=== PATIENT | male | born 1965 | race Caucasian/White ===

== ENCOUNTER 2017-06-21 11:08 | Emergency (ER) | payer OTHER ==
--- NOTE | 2017-06-21 11:29 | EDM.PDOC ---
ED HPI GENERAL MEDICAL PROBLEM - General Chief Complaint: Abdominal Pain Stated Complaint: ABD PAIN Time Seen by Provider: 06/21/17 11:29 Source of Information: Reports: Patient, Family (), RN, RN Notes Reviewed History Limitations: Reports: No Limitations - History of Present Illness INITIAL COMMENTS - FREE TEXT/NARRATIVE: Arrives from home by POV with c/o onset of abdominal pain with nausea and vomiting this morning. Pt last ate chicken for dinner at a restaurant last night. The pain is waxing and waning, and rated 9-10/10 at maximal intensity. He described a generalized abdominal ache with recurring bouts of severe pain at the B/L "kidney area" right side worse than left. Denies fevers. Admit to chills and diaphoresis with vomiting and pain. Denies diarrhea. Had a "normal" BM this morning. No known sick contacts. Onset: Today Duration: Constant, Waxing/Waning Location: Reports: Abdomen Quality: Reports: Ache Severity: Severe Improves with: Reports: None Worsens with: Reports: None Associated Symptoms: Reports: No Other Symptoms Middle Abdomen Pain Score (Numeric/FACES): 7 - Related Data Allergies Allergy/AdvReac Type Severity Reaction Status Date / Time No Known Allergies Allergy Verified 06/21/17 11:26 Home Meds: Home Meds Chlorthalidone 25 mg PO DAILY 06/21/17 [History] Cholecalciferol (Vitamin D3) [Vitamin D3] 1,000 unit PO DAILY 06/21/17 [History] Folic Acid 1 mg PO DAILY 06/21/17 [History] Hydroxychloroquine Sulfate 200 mg PO 06/21/17 [History] Ibuprofen [Motrin] 800 mg PO PRN 06/21/17 [History] Insulin Detemir [Levemir] 06/21/17 [History] Lisinopril 40 mg PO DAILY 06/21/17 [History] Magnesium Oxide 420 mg PO 06/21/17 [History] Methotrexate 2.5 mg PO 06/21/17 [History] Omeprazole 20 mg PO DAILY 06/21/17 [History] Prednisone [IJP: Prednisone] 10 mg PO 06/21/17 [History] Rosuvastatin Calcium 40 mg PO 06/21/17 [History] Sildenafil Citrate [Sildenafil] 100 mg PO 06/21/17 [History] Tiotropium [Spiriva HandiHaler] 18 mcg INH DAILY 06/21/17 [History] glipiZIDE [Glucotrol XL] 10 mg PO BID 06/21/17 [History] metFORMIN HCl [Metformin HCl] 1,000 mg PO 06/21/17 [History] Past Medical History Cardiovascular History: Reports: Hypertension Gastrointestinal History: Reports: GERD Endocrine/Metabolic History: Reports: Diabetes, Type II, IDDM - Past Surgical History GI Surgical History: Reports: Appendectomy Social & Family History - Family History Family Medical History: Noncontributory - Living Situation & Occupation Living situation: Reports: , with Spouse Occupation: Employed ED ROS GENERAL - Review of Systems Review Of Systems: ROS reveals no pertinent complaints other than HPI. ED EXAM, GI/ABD - Physical Exam Exam: See Below Exam Limited By: No Limitations General Appearance: Alert, WD/WN, Mild Distress (due to abdominal pain) Eyes: Bilateral: Normal Appearance Ears: Hearing Grossly Normal Nose: Normal Inspection Throat/Mouth: Normal Lips, Normal Teeth, Normal Oropharynx, Normal Voice, No Airway Compromise, Other (dry oral membranes) Head: Atraumatic, Normocephalic Neck: Normal Inspection, Supple, Non-Tender, Full Range of Motion Respiratory/Chest: No Respiratory Distress, Lungs Clear, Normal Breath Sounds, No Accessory Muscle Use, Chest Non-Tender Cardiovascular: Regular Rate, Rhythm, No Edema, Tachycardia GI/Abdominal Exam: Normal Bowel Sounds, Soft, No Distention, No Abnormal Bruit, Tender (mild generalized tenderness). No: Guarding, Rigid, Rebound (Male) Exam: Deferred Rectal (Males) Exam: Deferred Back Exam: Normal Inspection Extremities: Normal Inspection Neurological: Alert, Oriented, CN II-XII Intact, Normal Cognition, Normal Gait, No Motor/Sensory Deficits Psychiatric: Normal Affect, Normal Mood Skin Exam: Warm, Intact, No Rash, Diaphoretic, Pallor Course - Vital Signs Last Recorded V/S: Last Vital Signs Temp 36.2 C 06/21/17 11:26 Pulse 120 H 06/21/17 11:26 Resp 20 06/21/17 11:26 BP 139/91 H 06/21/17 11:26 Pulse Ox 98 06/21/17 11:26 - Orders/Labs/Meds Orders: Active Orders 24 hr Category Date Time Status Peripheral IV Care [RC] . DIRECTED Care 06/21/17 11:36 Active CULTURE BLOOD [BC] Stat Lab 06/21/17 12:25 Received CULTURE BLOOD [BC] Stat Lab 06/21/17 12:31 Received Sodium Chloride 0.9% [Saline Flush] Med 06/21/17 11:35 Active 10 ml FLUSH ASDIRECTED PRN Blood Culture x2 Reflex Set [OM.PC] Stat Oth 06/21/17 12:10 Ordered Peripheral IV Insertion Adult [OM.PC] Stat Oth 06/21/17 11:35 Ordered Medication Orders Sodium Chloride (Saline Flush) 10 ml FLUSH ASDIRECTED PRN PRN Reason: Keep Vein Open Last Admin: 06/21/17 11:47 Dose: 10 ml Labs: Laboratory Tests 06/21/17 06/21/17 06/21/17 Range/Units 11:33 11:33 12:07 WBC 22.5 H (5.0-10.0) 10^3/uL RBC 5.31 (4.6-6.2) 10^6/uL Hgb 16.0 (14.0-18.0) g/dL Hct 46.0 (40.0-54.0) % MCV 86.6 (80-100) fL MCH 30.1 (27.0-34.0) pg MCHC 34.8 (33.0-35.0) g/dL Plt Count 297 (150-450) 10^3/uL Neut % (Auto) 74.9 (42.2-75.2) % Lymph % (Auto) 10.3 L (20.5-50.1) % [place] % (Auto) 13.2 H (2-8) % Eos % (Auto) 1.4 (1.0-3.0) % Baso % (Auto) 0.2 (0.0-1.0) % Sodium 139 (135-145) mmol/L Potassium 3.9 (3.6-5.0) mmol/L Chloride 102 (101-111) mmol/L Carbon Dioxide 26.0 (21.0-31.0) mmol/L Anion Gap 14.9 BUN 20 H (7-18) mg/dL Creatinine 1.0 (0.6-1.3) mg/dL Est Cr Clr Drug Dosing 99.88 mL/min Estimated GFR (MDRD) > 60 BUN/Creatinine Ratio 20.00 Glucose 161 H (74-105) mg/dL Lactic Acid (0.5-2.2) mmol/L Calcium 10.1 (8.4-10.2) mg/dl Total Bilirubin 0.6 (0.2-1.0) mg/dL AST 36 (10-42) IU/L ALT 51 (10-60) IU/L Alkaline Phosphatase 49 (42-121) IU/L Total Protein 7.8 (6.7-8.2) g/dl Albumin 4.4 (3.2-5.5) g/dl Globulin 3.4 Albumin/Globulin Ratio 1.29 Amylase 30 (28-100) U/L Lipase 22 (22-51) U/L Urine Color [place] (YELLOW) Urine Appearance Slightly cloudy (CLEAR) Urine pH 7.5 (5.0-9.0) Ur Specific [place] 1.020 (1.005-1.030) Urine Protein 30 H (NEGATIVE) Urine Glucose (UA) Negative (NEGATIVE) Urine Ketones Trace H (NEGATIVE) Urine Occult Blood Negative (NEGATIVE) Urine Nitrite Negative (NEGATIVE) Urine Bilirubin Small H (NEGATIVE) Urine Urobilinogen 2.0 H (0.2-1.0) mg/dL Ur Leukocyte Esterase Negative (NEGATIVE) Urine RBC Not seen /HPF Urine WBC Not seen (0-5/HPF) /HPF Ur Epithelial Cells Rare /HPF Urine Bacteria Not seen (0-FEW/HPF) /HPF Urine Mucus Moderate H /LPF 06/21/17 Range/Units 12:25 WBC (5.0-10.0) 10^3/uL RBC (4.6-6.2) 10^6/uL Hgb (14.0-18.0) g/dL Hct (40.0-54.0) % MCV (80-100) fL MCH (27.0-34.0) pg MCHC (33.0-35.0) g/dL Plt Count (150-450) 10^3/uL Neut % (Auto) (42.2-75.2) % Lymph % (Auto) (20.5-50.1) % [place] % (Auto) (2-8) % Eos % (Auto) (1.0-3.0) % Baso % (Auto) (0.0-1.0) % Sodium (135-145) mmol/L Potassium (3.6-5.0) mmol/L Chloride (101-111) mmol/L Carbon Dioxide (21.0-31.0) mmol/L Anion Gap BUN (7-18) mg/dL Creatinine (0.6-1.3) mg/dL Est Cr Clr Drug Dosing mL/min Estimated GFR (MDRD) BUN/Creatinine Ratio Glucose (74-105) mg/dL Lactic Acid 1.3 (0.5-2.2) mmol/L Calcium (8.4-10.2) mg/dl Total Bilirubin (0.2-1.0) mg/dL AST (10-42) IU/L ALT (10-60) IU/L Alkaline Phosphatase (42-121) IU/L Total Protein (6.7-8.2) g/dl Albumin (3.2-5.5) g/dl Globulin Albumin/Globulin Ratio Amylase (28-100) U/L Lipase (22-51) U/L Urine Color (YELLOW) Urine Appearance (CLEAR) Urine pH (5.0-9.0) Ur Specific [place] (1.005-1.030) Urine Protein (NEGATIVE) Urine Glucose (UA) (NEGATIVE) Urine Ketones (NEGATIVE) Urine Occult Blood (NEGATIVE) Urine Nitrite (NEGATIVE) Urine Bilirubin (NEGATIVE) Urine Urobilinogen (0.2-1.0) mg/dL Ur Leukocyte Esterase (NEGATIVE) Urine RBC /HPF Urine WBC (0-5/HPF) /HPF Ur Epithelial Cells /HPF Urine Bacteria (0-FEW/HPF) /HPF Urine Mucus /LPF Meds: Medications Generic Name Dose Route Start Last Admin Trade Name Freq PRN Reason Stop Dose Admin Sodium Chloride 10 ml 06/21/17 11:35 06/21/17 11:47 Saline Flush FLUSH 10 ml ASDIRECTED PRN Administration Keep Vein Open Discontinued Medications Generic Name Dose Route Start Last Admin Trade Name Freq PRN Reason Stop Dose Admin Hydromorphone HCl 1 mg 06/21/17 11:36 06/21/17 11:46 Dilaudid IVPUSH 06/21/17 11:37 1 mg ONETIME ONE Administration Hydromorphone HCl 1 mg 06/21/17 12:09 06/21/17 12:22 Dilaudid IVPUSH 06/21/17 12:10 1 mg ONETIME ONE Administration Sodium Chloride 1,000 mls @ 999 mls/hr 06/21/17 11:36 06/21/17 11:47 Normal Saline IV 06/21/17 12:36 999 mls/hr .BOLUS ONE Administration Iopamidol 100 ml 06/21/17 12:41 06/21/17 13:03 Isovue-300 (61%) IVPUSH 06/21/17 12:42 100 ml ONETIME ONE Administration Ondansetron HCl 4 mg 06/21/17 11:36 06/21/17 11:47 Zofran IV 06/21/17 11:37 4 mg ONETIME ONE Administration - Radiology Interpretation Free Text/Narrative:: CT Abd/Pelvis: no acute findings per Rad. report. Departure - Departure Time of Disposition: 13:52 Disposition: Home, Self-Care 01 Condition: Fair Clinical Impression: Abdominal pain Qualifiers: Abdominal location: generalized Qualified Code(s): R10.84 - Generalized abdominal pain Nausea & vomiting Qualifiers: Vomiting type: unspecified Vomiting Intractability: non-intractable Qualified Code(s): R11.2 - Nausea with vomiting, unspecified - Discharge Information Instructions: Nausea and Vomiting, Adult, [id number], Abdominal Pain, Adult, [id number] Forms: ED Department Discharge Additional Instructions: Rx: Zofran 4mg ODT Rx: Phenergan 25mg rectal suppositories Clear liquid diet until nausea and vomiting resolve, then advance to soft bland diet as tolerated. Follow up in clinic if not improved in 3 days. Return to ER if worse at any time. - My Orders Last 24 Hours: My Active Orders 06/21/17 11:35 Sodium Chloride 0.9% [Saline Flush] 10 ml FLUSH ASDIRECTED PRN Peripheral IV Insertion Adult [OM.PC] Stat 06/21/17 11:36 Peripheral IV Care [RC] . DIRECTED 06/21/17 12:10 Blood Culture x2 Reflex Set [OM.PC] Stat 06/21/17 12:25 CULTURE BLOOD [BC] Stat 06/21/17 12:31 CULTURE BLOOD [BC] Stat - Assessment/Plan Last 24 Hours: My Active Orders 06/21/17 11:35 Sodium Chloride 0.9% [Saline Flush] 10 ml FLUSH ASDIRECTED PRN Peripheral IV Insertion Adult [OM.PC] Stat 06/21/17 11:36 Peripheral IV Care [RC] . DIRECTED 06/21/17 12:10 Blood Culture x2 Reflex Set [OM.PC] Stat 06/21/17 12:25 CULTURE BLOOD [BC] Stat 06/21/17 12:31 CULTURE BLOOD [BC] Stat
[2017-06-21] MEDS ORDERED: Sodium Chloride 0.9% 10 ML Syringe FLUSH PRN (11:35)
[2017-06-21] MEDS ORDERED: HYDROmorphone 1 MG/ML Syringe IVPUSH ONE ×3 (11:36→13:58)
[2017-06-21] MEDS ORDERED: Ondansetron 4 MG/2 ML SDV IV ONE (11:36)
[2017-06-21] MEDS ORDERED: Sodium Chloride 0.9% 1,000 ML IV ONE (11:36)
[2017-06-21 12:00] LABS: CHLORIDE,CL 102 mmol/L (101-111); SODIUM,NA 139 mmol/L (135-145)
[2017-06-21] MEDS ORDERED: Iopamidol 612 MG/ML 100 ML Bottle IVPUSH ONE (12:41)
[2017-06-21] MEDS ORDERED: Promethazine 25 MG/ML SDV IM ONE (13:58)
[2017-06-21] MEDS ORDERED: Ketorolac 30 MG/ML SDV IVPUSH ONE (13:58)
== END 2017-06-21 14:14 | disposition home or self-care (01) ==
LOC: DL.ED 11:08
DX: R10.84 Generalized abdominal pain (principal); R11.2 Nausea with vomiting, unspecified; I10 Essential (primary) hypertension; E11.9 Type 2 diabetes mellitus without complications; K21.9 Gastro-esophageal reflux disease without esophagitis; Z79.4 Long term (current) use of insulin; Z79.899 Other long term (current) drug therapy; Z90.49 Acquired absence of other specified parts of digestive tract
CPT/HCPCS: 36415; 74177; 80053; 81001; 82150; 83605; 83690; 85025; 87040; 96361; 96372; 96374; 96375; 96376; 99284; J1170; J1885; J2405; J2550; J7030; J7050; Q9967

== ENCOUNTER 2018-06-04 11:04 | Emergency (ER) | payer OTHER ==
[2018-06-04] MEDS ORDERED: Ketorolac 30 MG/ML SDV IM ONE (15:21)
--- NOTE | 2018-06-04 15:27 | EDM.PDOC ---
ED HPI GENERAL MEDICAL PROBLEM - General Chief Complaint: Neck Problem Stated Complaint: NECK PAIN [id number] Time Seen by Provider: 06/04/18 15:15 Source of Information: Reports: Patient History Limitations: Reports: No Limitations - History of Present Illness INITIAL COMMENTS - FREE TEXT/NARRATIVE: this patient comes emergency department today with complaints of neck pain. This patient has had chronic neck pain following a work related injury many years ago. 2 months ago he had his head again on something at work and his neck is been bothering him quite extensively. He has severe pain in his right lower neck and goes up to his head and gives him a headache. It is getting to the point where he can't sleep or do anything anymore due to the pain. He [facility]. Reports that he is not been giving anything for pain and he can't take it anymore. He was on long-term narcotics many years ago but has not been on for over a year. NO recent other injuries no change in the function of his upper or lower extremities. Right Neck Pain Score (Numeric/FACES): 6 - Related Data Allergies Allergy/AdvReac Type Severity Reaction Status Date / Time No Known Allergies Allergy Verified 06/04/18 12:22 Home Meds: Home Meds Chlorthalidone 25 mg PO DAILY 06/21/17 [History] Cholecalciferol (Vitamin D3) [Vitamin D3] 1,000 unit PO DAILY 06/21/17 [History] Folic Acid 1 mg PO DAILY 06/21/17 [History] Hydroxychloroquine Sulfate 200 mg PO 06/21/17 [History] Ibuprofen [Motrin] 800 mg PO PRN 06/21/17 [History] Insulin Detemir [Levemir] 06/21/17 [History] Lisinopril 40 mg PO DAILY 06/21/17 [History] Magnesium Oxide 420 mg PO 06/21/17 [History] Methotrexate 2.5 mg PO 06/21/17 [History] Omeprazole 20 mg PO DAILY 06/21/17 [History] Prednisone [IJP: Prednisone] 10 mg PO 06/21/17 [History] Rosuvastatin Calcium 40 mg PO 06/21/17 [History] Sildenafil Citrate [Sildenafil] 100 mg PO 06/21/17 [History] Tiotropium [Spiriva HandiHaler] 18 mcg INH DAILY 06/21/17 [History] glipiZIDE [Glucotrol XL] 10 mg PO BID 06/21/17 [History] metFORMIN HCl [Metformin HCl] 1,000 mg PO 06/21/17 [History] Cyclobenzaprine [Flexeril] 10 mg PO TID #12 tab 06/04/18 [Rx] Past Medical History Cardiovascular History: Reports: Hypertension Gastrointestinal History: Reports: GERD Endocrine/Metabolic History: Reports: Diabetes, Type II, IDDM - Past Surgical History GI Surgical History: Reports: Appendectomy Social & Family History - Family History Family Medical History: Noncontributory - Tobacco Use Smoking Status *Q: Current Every Day Smoker Years of Tobacco use: 30 Packs/Tins Daily: 1 - Caffeine Use Caffeine Use: Reports: Soda - Recreational Drug Use Recreational Drug Use: No - Living Situation & Occupation Living situation: Reports: , with Spouse Occupation: Employed ED ROS GENERAL - Review of Systems Review Of Systems: ROS reveals no pertinent complaints other than HPI. ED EXAM, UPPER BACK/NECK PAIN - Physical Exam Exam: See Below Exam Limited By: No Limitations General Appearance: Alert Eye Exam: Bilateral Eye: Normal Inspection Ears Exam: Normal External Exam, Hearing Grossly Normal Nose Exam: Normal Inspection Throat/Mouth Exam: Normal Inspection, Normal Lips, Normal Voice Head Exam: Atraumatic, Normocephalic Neck Exam: Limited Range of Motion, Painful Range of Motion, Stiff Neck, Tender Lateral. No: Tender Midline Nexus Criteria: No: Posterior, Midline Cervical Tenderness, Evidence of Intoxication, Altered Level of Consciousness, Focal Neurological Deficit, Painful Distraction Injuries Cardiovascular/Respiratory: Regular Rate, Rhythm, No M/R/G GI/Abdominal: Normal Bowel Sounds, Soft Back Exam: Normal Inspection, Full Range of Motion. 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 As Tested, No Motor/Sensory Deficits, Alert, Normal Mood/Affect, Oriented x 3 DTR: 2+: Bicep (R), Bicep (L), Tricep (R), Tricep (L) Psychiatric: Depressed Mood, Flat Affect Skin Exam: Normal Color, Warm/Dry Lymphatic: No Adenopathy Course - Vital Signs Last Recorded V/S: Last Vital Signs Temp 36.1 C 06/04/18 14:38 Pulse 119 H 06/04/18 14:38 Resp 14 06/04/18 12:18 BP 136/77 06/04/18 14:38 Pulse Ox 100 06/04/18 12:18 - Orders/Labs/Meds Meds: Medications Discontinued Medications Generic Name Dose Route Start Last Admin Trade Name Hermila PRN Reason Stop Dose Admin Hydrocodone Bitart/Acetaminophen 1 tab 06/04/18 16:08 06/04/18 16:29 [place] 325-10 Mg PO 06/04/18 16:09 1 tab ONETIME ONE Administration Ketorolac Tromethamine 30 mg 06/04/18 15:21 06/04/18 15:29 Toradol IM 06/04/18 15:22 30 mg ONETIME ONE Administration Orphenadrine Citrate 60 mg 06/04/18 15:21 06/04/18 15:32 Norflex IM 06/04/18 15:22 60 mg NOW STA Administration - Re-Assessments/Exams Free Text/Narrative Re-Assessment/Exam: 06/06/18 09:03 Ketorolac 30mg IM Norflex 60mg IM I did review the patient PDMP for the state of [place] and [place]. I do not see any evidence of any controlled substances given to this patient for over a year. I did explain to the patient that this is a chronic condition that needs to be managed in the primary care setting. There is nothing new today and this has been going on for 2 months.[facility] he needs to be continued to follow closely for his long-term management. He has had injections in his neck in the past which resolved his pain completely. He has not had any of those. He does have an MR scheduled for next week. As he does appear quite uncomfortable and he has not received any narcotics in the pastyearI will give him a very short course of 8 tablets of hydrocodone so that he can get through the next day or so and meet with his primary care provider for long-term management plan of this.As well as Flexeril which he denies a prescription for as he has not been using them. He is comfortable with this plan and his questions are answered. Departure - Departure Time of Disposition: 16:01 Disposition: Home, Self-Care 01 Clinical Impression: Chronic neck pain - Discharge Information Prescriptions: Cyclobenzaprine [Flexeril] 10 mg PO TID #12 tab Instructions: Cervical Sprain, [id number], Pain Medicine Instructions, Easy- to-Read Referrals: Antonia Skinner NP [Primary Care Provider] - Forms: ED Department Discharge Additional Instructions: Flexeril 1 tablet three times a day as needed for pain. As you are driving. [place] 1 tab to go home take when you get home and rx for 1 tablet every 4-6 hrs as needed for pain caution sedation. 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 [facility] here [facility] [place]. 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 Return to the ED if new or worsening symptoms. - Assessment/Plan Assessment:: chronic neck pain. Plan: Flexeril 1 tablet three times a day as needed for pain. As you are driving. [place] 1 tab to go home take when you get home and rx for 1 tablet every 4-6 hrs as needed for pain caution sedation. RX given to the patient. [facility] chronic management of your pain needs to be managed by a PCP. [facility] a [facility] here in [place]. Continue to work with [facility] for the group home management of your chronic neck pain. Return to the ED if new or worsening symptoms.
[2018-06-04] MEDS ORDERED: Acetaminophen/HYDROcodone 325-10 MG Tab PO ONE (16:08)
== END 2018-06-04 16:39 | disposition home or self-care (01) ==
LOC: DL.ED 11:04
DX: G89.29 Other chronic pain (principal); M54.2 Cervicalgia; I10 Essential (primary) hypertension; E11.9 Type 2 diabetes mellitus without complications; F17.210 Nicotine dependence, cigarettes, uncomplicated; Z79.4 Long term (current) use of insulin; Z79.899 Other long term (current) drug therapy
CPT/HCPCS: 96372; 99282; A9270; J1885; J2360

== ENCOUNTER 2019-04-10 22:57 | Emergency (ER) | payer SELFPAY ==
[2019-04-10] MEDS ORDERED: Nitroglycerin 0.4 MG Tab.SL SL ONE (23:05)
--- NOTE | 2019-04-10 23:06 | EDM.PDOC ---
ED HPI GENERAL MEDICAL PROBLEM - General Chief Complaint: Chest Pain Stated Complaint: AMBULANCE Time Seen by Provider: 04/10/19 23:03 Source of Information: Reports: Patient, Family History Limitations: Reports: No Limitations - History of Present Illness INITIAL COMMENTS - FREE TEXT/NARRATIVE: spouse states pt is s/p 3x stent Saturday. onset mid sternal pain going up to jaw and down left arm about 1 hour ago. 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 Treatments FRAUD ANALYST: Reports: NSAIDS Left Chest Pain Score (Numeric/FACES): 5 - Related Data Allergies Allergy/AdvReac Type Severity Reaction Status Date / Time No Known Allergies Allergy Verified 04/10/19 22:58 Home Meds: Home Meds Chlorthalidone 25 mg PO DAILY 06/21/17 [History] Cholecalciferol (Vitamin D3) [Vitamin D3] 1,000 unit PO DAILY 06/21/17 [History] Folic Acid 1 mg PO DAILY 06/21/17 [History] Hydroxychloroquine Sulfate 200 mg PO 06/21/17 [History] Ibuprofen [Motrin] 800 mg PO PRN 06/21/17 [History] Insulin Detemir [Levemir] 06/21/17 [History] Lisinopril 40 mg PO DAILY 06/21/17 [History] Magnesium Oxide 420 mg PO 06/21/17 [History] Methotrexate 2.5 mg PO 06/21/17 [History] Omeprazole 20 mg PO DAILY 06/21/17 [History] Prednisone [IJP: Prednisone] 10 mg PO 06/21/17 [History] Rosuvastatin Calcium 40 mg PO 06/21/17 [History] Sildenafil Citrate [Sildenafil] 100 mg PO 06/21/17 [History] Tiotropium [Spiriva HandiHaler] 18 mcg INH DAILY 06/21/17 [History] glipiZIDE [Glucotrol XL] 10 mg PO BID 06/21/17 [History] metFORMIN HCl [Metformin HCl] 1,000 mg PO 06/21/17 [History] Cyclobenzaprine [Flexeril] 10 mg PO TID #12 tab 06/04/18 [Rx] Past Medical History Cardiovascular History: Reports: Hypertension Gastrointestinal History: Reports: GERD Endocrine/Metabolic History: Reports: Diabetes, Type II, IDDM - Past Surgical History GI Surgical History: Reports: Appendectomy Social & Family History - Family History Family Medical History: Noncontributory - Caffeine Use Caffeine Use: Reports: Soda - Living Situation & Occupation Living situation: Reports: , with Spouse Occupation: Employed ED ROS GENERAL - Review of Systems Review Of Systems: Comprehensive ROS is negative, except as noted in HPI. ED EXAM, GENERAL - Physical Exam Exam: See Below Exam Limited By: No Limitations General Appearance: Alert, WD/WN, Mild Distress, Moderate Distress, Other ( chest pain) Ears: Hearing Grossly Normal Throat/Mouth: Normal Voice, No Airway Compromise Head: Atraumatic Neck: Non-Tender, Full Range of Motion Respiratory/Chest: No Respiratory Distress, No Accessory Muscle Use, Rhonchi Cardiovascular: Regular Rate, Rhythm GI/Abdominal: Soft, Non-Tender Neurological: Alert, Oriented, Normal Cognition, Normal Gait, No Motor/Sensory Deficits Psychiatric: Flat Affect Skin Exam: Warm, Dry, Normal Color Lymphatic: No Adenopathy Course - Vital Signs Last Recorded V/S: Last Vital Signs Temp 36.1 C 04/10/19 23:07 Pulse 115 H 04/10/19 23:07 Resp 15 04/10/19 23:07 BP 153/82 H 04/10/19 23:08 Pulse Ox 96 04/10/19 23:07 - Orders/Labs/Meds Orders: Active Orders 24 hr Category Date Time Status EKG Documentation Completion [RC] STAT Care 04/10/19 22:48 Active Labs: Laboratory Tests 04/10/19 04/10/19 04/10/19 Range/Units 23:02 23:02 23:02 WBC 12.2 H (5.0-10.0) 10^3/uL RBC 5.10 (4.6-6.2) 10^6/uL Hgb 15.3 (14.0-18.0) g/dL Hct 45.2 (40.0-54.0) % MCV 88.6 (80-100) fL MCH 30.0 (27.0-34.0) pg MCHC 33.8 (33.0-35.0) g/dL Plt Count 241 (150-450) 10^3/uL Neut % (Auto) 64.5 (42.2-75.2) % Lymph % (Auto) 18.8 L (20.5-50.1) % [place] % (Auto) 13.9 H (2-8) % Eos % (Auto) 2.3 (1.0-3.0) % Baso % (Auto) 0.5 (0.0-1.0) % PT 9.2 (9.0-12.0) SEC INR 0.9 (0.9-1.2) D-Dimer, Quantitative 174 (0-400) ng/mL Sodium 135 (135-145) mmol/L Potassium 3.9 (3.6-5.0) mmol/L Chloride 101 (101-111) mmol/L Carbon Dioxide 25.0 (21.0-31.0) mmol/L Anion Gap 12.9 BUN 18 (7-18) mg/dL Creatinine 1.2 (0.6-1.3) mg/dL Est Cr Clr Drug Dosing 81.38 mL/min Estimated GFR (MDRD) > 60 BUN/Creatinine Ratio 15.00 Glucose 263 H (74-105) mg/dL Calcium 9.7 (8.4-10.2) mg/dl Total Bilirubin 0.5 (0.2-1.0) mg/dL AST 38 (10-42) IU/L ALT 58 (10-60) IU/L Alkaline Phosphatase 51 (42-121) IU/L Troponin I 0.08 H* (0.00-0.02) ng/ml B-Natriuretic Peptide 29 (0-100) pg/ml Total Protein 7.6 (6.7-8.2) g/dl Albumin 3.9 (3.2-5.5) g/dl Globulin 3.7 Albumin/Globulin Ratio 1.05 Meds: Medications Discontinued Medications Generic Name Dose Route Start Last Admin Trade Name Hermila PRN Reason Stop Dose Admin Morphine Sulfate 2 mg 04/10/19 23:24 04/10/19 23:30 Morphine IVPUSH 04/10/19 23:25 2 mg ONETIME ONE Administration Nitroglycerin 0.4 mg 04/10/19 23:05 04/10/19 23:08 Nitrostat SL 04/10/19 23:06 0.4 mg ONETIME ONE Administration - Re-Assessments/Exams Free Text/Narrative Re-Assessment/Exam: 04/10/19 23:[address] Cardenas @ who kindly accepted pt. Departure - Departure Time of Disposition: 23:46 Disposition: DC/Tfer to Acute Hospital 02 Reason for Transfer *Q: Other Condition: Good Clinical Impression: Status post arterial stent, Elevated troponin Forms: Interfacility Transfer EMTALA - My Orders Last 24 Hours: My Active Orders 04/10/19 22:48 EKG Documentation Completion [RC] STAT - Assessment/Plan Last 24 Hours: My Active Orders 04/10/19 22:48 EKG Documentation Completion [RC] STAT
[2019-04-10] MEDS ORDERED: Morphine 2 MG/ML Syringe IVPUSH ONE (23:24)
[2019-04-10 23:27] LABS: ANION GAP 12.9; CHLORIDE,CL 101 mmol/L (101-111); SODIUM,NA 135 mmol/L (135-145)
[2019-04-10] MEDS ORDERED: Heparin Sodium/0.45% NaCl 25,000 UNITS/500 ML BAG IV SCH (23:45)
[2019-04-10] MEDS ORDERED: HYDROmorphone 1 MG/ML Syringe IVPUSH ONE (23:48)
== END 2019-04-11 00:27 ==
LOC: DL.ED 22:57
DX: R79.89 Other specified abnormal findings of blood chemistry (principal); Z95.5 Presence of coronary angioplasty implant and graft; I10 Essential (primary) hypertension; K21.9 Gastro-esophageal reflux disease without esophagitis; E11.9 Type 2 diabetes mellitus without complications; Z79.899 Other long term (current) drug therapy; Z79.4 Long term (current) use of insulin
CPT/HCPCS: 36415; 71045; 80053; 83880; 84484; 85025; 85379; 85610; 93005; 96365; 96375; 99284; 99285; A9270; J1170; J1644; J2270